=== PATIENT | female | born 1935 | race Caucasian/White ===

== ENCOUNTER 2021-07-26 11:04 | Inpatient (IN) | payer MEDICARE, OTHER ==
[~2021-07-26] VITALS: Ht 157.5 cm; Wt 66.6 kg
[2021-07-26] MEDS ORDERED: PIPERACILLIN SODIUM/TAZOBACTAM 4.5 GM in NS (IVPB) 100 ML IV ONE (11:30)
[2021-07-26] MEDS ORDERED: LACTATED RINGERS 1,000 ML IV ONE (11:30)
--- NOTE | 2021-07-26 11:34 | ED General ---
General Chief Complaint: Fever-Adult/Adol Stated Complaint: ELEV BP/HR; FEVER Nursing Triage Note: Patient presents to the ED with c/o fever, elevated blood pressure, and elevated heart rate. Patient reports that she was discharged yesterday from [facility] with a small bowel obstruction. She states she went to her follow appointment today with her PCP and they told her to come to the ED due to her fever, elevated BP, and high heart rate. Source of Information: Patient Exam Limitations: No Limitations History of Present Illness Date Seen by Provider: Jul 26, 2021 Time Seen by Provider: 11:15 Initial Comments Patient is of 86-year-old female presents with fever A. fib with RVR from her PCPs office for routine appointment after release from hospital yesterday after 4-day inpatient hospital stay for small bowel obstruction and fever of uncertain etiology. Patient is not currently on antibiotics but had a fever at her PCPs office today. She reports generalized flushing but denies chest pain palpitation shortness of breath. No abdominal pain. No nausea vomiting or diarrhea. No urinary frequency urgency or dysuria. Patient had a mild case of Covid 3 months ago. No other acute symptoms or complaints. No prior history of CAD, CHF or cardiac arrhythmia. Patient is not currently on anticoagulation therapy. Additional history obtained from the patient's daughter who is at bedside. Timing/Duration: 12 Hours Severity: Moderate Modifying Factors: improves with Other Associated Systoms: Other Allergies and Home Medications Allergies Coded Allergies: No Known Drug Allergies (Unverified , 07/26/21) Patient Home Medication List Home Medication List Reviewed: Yes Review of Systems Review of Systems Constitutional: see HPI EENTM: see HPI Respiratory: see HPI Cardiovascular: see HPI Gastrointestinal: see HPI Genitourinary: see HPI Musculoskeletal: see HPI Skin: see HPI Psychiatric/Neurological: See HPI Hematologic/Lymphatic: See HPI Immunological/Allergic: see HPI All Other Systems Reviewed Negative Unless Noted: Yes Past Jxvmwgy-Ynmpfy-Zzywbr Hx Patient Social History Tobacco Use?: Yes Use of E-Cig and/or Vaping dev: No Substance use?: No Alcohol Use?: No Pt feels they are or have been: No Immunizations Up To Date First/Initial COVID19 Vaccinat: Not Currently Vaccinated. COVID + March 2021 Past Medical History Surgery/Hospitalization HX: Discharged from [facility] 07/25/2021 for small bowel obstruction. Physical Exam-Suspected Sepsis Physical Exam Vital Signs Vital Signs - First Documented 07/26/21 11:10 Temp 37.1 Pulse 134 Resp 24 B/P (MAP) 150/107 (121) Pulse Ox 95 O2 Delivery Room Air Capillary Refill : Less Than 3 Seconds Blood Pressure Mean: 121 Height, Weight, BMI Height: '" Weight: lbs. oz. kg; 24.00 BMI Method: General Appearance: No Apparent Distress Eyes: Bilateral Eye Normal Inspection, Bilateral Eye PERRL, Bilateral Eye EOMI HEENT: PERRL/EOMI, Pharynx Normal Neck: Non Tender, Supple Respiratory: Chest Non Tender, Lungs Clear Cardiovascular: Regular Rate, Rhythm, Tachycardia Gastrointestinal: Non Tender, Soft Back: No CVA Tenderness, No Vertebral Tenderness Extremity: Non Tender, No Calf Tenderness Skin: normal color, warm/dry Lymphatic: No Adenopathy Focused Exam Sepsis Stage: Sepsis Possible Source: Unknown Lactate Level 07/26/21 11:40: Lactic Acid Level 1.44 Time of Focused Exam: 11:20 Respiratory: Lungs Clear, No Accessory Muscle Use Cardiovascular: Irregularly Irregular, Tachycardia Capillary Refill: Less Than 3 Seconds Skin: normal color Lactic Acid Level Laboratory Tests Test 07/26/21 11:40 Lactic Acid Level 1.44 MMOL/L (0.50-2.00) Within 3hrs of presentation: Admin fluids, Blood cultures prior to ABX's, Focus exam, Lactate level Progress/Results/Core Measures Suspected Sepsis SIRS Temperature: Pulse: 134 Respiratory Rate: 24 Laboratory Tests 07/26/21 11:25: White Blood Count 6.7 Blood Pressure 150 /107 Mean: 121 07/26/21 11:40: Lactic Acid Level 1.44 Laboratory Tests 07/26/21 11:25: Creatinine 0.64, INR Comment 1.1, Platelet Count 214, Total Bilirubin 1.0 Results/Orders Lab Results Laboratory Tests Test 07/26/21 11:25 07/26/21 11:40 07/26/21 12:45 Range/Units White Blood Count 6.7 4.3-11.0 10^3/uL Red Blood Count 3.45 L 3.80-5.11 10^6/uL Hemoglobin 11.0 L 11.5-16.0 g/dL Hematocrit 33 L 35-52 % Mean Corpuscular Volume 95 80-99 fL Mean Corpuscular Hemoglobin 32 25-34 pg Mean Corpuscular Hemoglobin Concent 34 32-36 g/dL Red Cell Distribution Width 12.8 10.0-14.5 % Platelet Count 214 130-400 10^3/uL Mean Platelet Volume 10.2 9.0-12.2 fL Immature Granulocyte % (Auto) 0 % Neutrophils (%) (Auto) 70 42-75 % Lymphocytes (%) (Auto) 15 12-44 % Monocytes (%) (Auto) 11 0-12 % Eosinophils (%) (Auto) 3 0-10 % Basophils (%) (Auto) 0 0-10 % Neutrophils # (Auto) 4.7 1.8-7.8 X 10^3 Lymphocytes # (Auto) 1.0 1.0-4.0 X 10^3 Monocytes # (Auto) 0.7 0.0-1.0 X 10^3 Eosinophils # (Auto) 0.2 0.0-0.3 10^3/uL Basophils # (Auto) 0.0 0.0-0.1 10^3/uL Immature Granulocyte # (Auto) 0.0 0.0-0.1 10^3/uL Prothrombin Time 14.2 12.2-14.7 SEC INR Comment 1.1 0.8-1.4 Activated Partial Thromboplast Time 34 24-35 SEC Sodium Level 137 135-145 MMOL/L Potassium Level 3.9 3.6-5.0 MMOL/L Chloride Level 101 98-107 MMOL/L Carbon Dioxide Level 27 21-32 MMOL/L Anion Gap 9 5-14 MMOL/L Blood Urea Nitrogen 19 H 7-18 MG/DL Creatinine 0.64 0.60-1.30 MG/DL Estimat Glomerular Filtration Rate 88 BUN/Creatinine Ratio 30 Glucose Level 106 H 70-105 MG/DL Calcium Level 9.4 8.5-10.1 MG/DL Corrected Calcium 10.0 8.5-10.1 MG/DL Total Bilirubin 1.0 0.1-1.0 MG/DL Aspartate Amino Transf (AST/SGOT) 24 5-34 U/L Alanine Aminotransferase (ALT/SGPT) 16 0-55 U/L Alkaline Phosphatase 70 40-136 U/L Troponin I < 0.30 <0.30 NG/ML Pro-B-Type Natriuretic Peptide 3882.0 H <75.0 PG/ML Total Protein 6.4 6.4-8.2 GM/DL Albumin 3.3 3.2-4.5 GM/DL Lactic Acid Level 1.44 0.50-2.00 MMOL/L Influenza Type A Antigen NEGATIVE NEGATIVE Influenza Type B Antigen NEGATIVE NEGATIVE Urine Color YELLOW Urine Clarity CLEAR Urine pH 6.5 5-9 Urine Specific [place] 1.015 L 1.016-1.022 Urine Protein NEGATIVE NEGATIVE Urine Glucose (UA) NEGATIVE NEGATIVE Urine Ketones TRACE H NEGATIVE Urine Nitrite NEGATIVE NEGATIVE Urine Bilirubin NEGATIVE NEGATIVE Urine Urobilinogen 0.2 < = 1.0 MG/DL Urine Leukocyte Esterase NEGATIVE NEGATIVE Urine RBC (Auto) TRACE H NEGATIVE Urine RBC RARE /HPF Urine WBC 0-2 /HPF Urine Squamous Epithelial Cells NONE /HPF Urine Crystals NONE /LPF Urine Bacteria TRACE /HPF Urine Casts NONE /LPF Urine Mucus NEGATIVE /LPF Urine Culture Indicated NO My Orders Orders - TOMAS CHAUHAN DO Cbc With Automated Diff (07/26/21 11:26) Comprehensive Metabolic Panel (07/26/21 11:26) Blood Culture (07/26/21 11:26) Sputum Culture (07/26/21 11:26) Urinalysis (07/26/21 11:26) Urine Culture (07/26/21 11:26) Protime With Inr (07/26/21 11:26) Partial Thromboplastin Time (07/26/21 11:26) Chest 1 View Ap/Pa Only (07/26/21 11:26) Ed Iv/Invasive Line Start (07/26/21 11:26) Ed Iv/Invasive Line Start (07/26/21 11:26) Vital Signs Adult Sepsis Patie Q15M (07/26/21 11:26) O2 (07/26/21 11:26) Remove Rings In Anticipation O (07/26/21 11:26) Lactic Acid Analyzer (07/26/21 11:26) Lactated Ringers (Lr 1000 Ml Iv Solution (07/26/21 11:30) Piperacillin Sodium/Tazobactam (Zosyn Vi (07/26/21 11:30) Influenza A & B Antigens (07/26/21 11:26) Probnp Fs (07/26/21 11:26) Troponin I Fs (07/26/21 11:26) Diltiazem Injection (Cardizem Injection) (07/26/21 12:30) Diltiazem Drip Pre-Mix (Cardizem Drip Pr (07/26/21 12:30) Furosemide Injection (Lasix Injection) (07/26/21 14:00) Medications Given in ED Current Medications Medications Dose Ordered Sig/Kalen Route Start Time Stop Time Status Last Admin Dose Admin Diltiazem HCl 10 mg ONCE ONCE IVP 07/26/21 12:30 07/26/21 12:31 DC 07/26/21 12:27 10 MG Lactated Ringer's 1,000 ml @ 0 mls/hr Q0M ONCE IV 07/26/21 11:30 07/26/21 11:31 DC 07/26/21 11:46 0 MLS/HR Piperacillin Sod/ Tazobactam Sod 4.5 gm/Sodium Chloride 100 ml @ 200 mls/hr ONCE ONCE IV 07/26/21 11:30 07/26/21 11:59 DC 07/26/21 11:46 200 MLS/HR Vital Signs/I&O 07/26/21 07/26/21 11:10 12:35 Temp 37.1 Pulse 134 88 Resp 24 23 B/P (MAP) 150/107 (121) 135/59 Pulse Ox 95 95 O2 Delivery Room Air Room Air Capillary Refill : Less Than 3 Seconds Blood Pressure Mean: 121 Departure Communication (Admissions) EKG: A. fib RVR, Chest x-ray, cardiopulmonary congestion with possible pulmonary infiltrate. Patient with fever, possible pneumonia on chest x-ray with findings of new onset A. fib with congestive heart failure. Patient is rate controlled with utilization of Cardizem and drip. IV fluids and empiric antibiotics given. Vital signs stable. Dr. Houston agrees to admit and Dr. Otero consulted. Impression Primary Impression: Atrial fibrillation with RVR Additional Impressions: Congestive heart failure Pneumonia Disposition: ADMITTED INPATIENT Condition: Stable Admissions Decision to Admit Reason: Admit from ER (General) Decision to Admit/Date: Jul 26, 2021 Time/Decision to Admit Time: 14:05 (Dr. Arriaza) Transfer Method of Transfer: EMS Departure-Patient Inst. Referrals: SELF,LUANNE MENDES (PCP/Family) Primary Care Physician TOMAS CHAUHAN DO Jul 26, 2021 11:34
--- NOTE | 2021-07-26 11:41 | Diagnostic Imaging Report ---
EXAMINATION: Portable erect AP chest at 1117 AM INDICATION: Fever and hypertension There are no prior studies available for comparison. The heart size is within normal limits. There is a vague area of slightly increased density in the right infrahilar region near the right hemidiaphragm. This finding could be secondary to chronic crowding of the bronchovascular markings. However, the possibility that there is an element of mild acute pneumonia and atelectasis in this area should still be considered. The lungs are otherwise clear. There is no evidence for failure and there is no significant pleural effusion noted. The mediastinum is not widened. The osseous structures are intact. Orthopedic hardware is seen overlying each humeral head and the lower cervical spine. IMPRESSION: 1. The vague area of increased density in the right infrahilar region is of uncertain etiology. This could be secondary to mild pneumonia/atelectasis, however. Clinical follow-up is recommended. 2. There is no acute cardiopulmonary abnormality noted otherwise. Dictated by: Dictated on workstation # [id number]
[2021-07-26 11:47] LABS: BASOPHILS % (AUTO) 0 % (0-10); EOSINOPHILS % (AUTO) 3 % (0-10); HEMATOCRIT 33 % (35-52); LYMPHOCYTES % (AUTO) 15 % (12-44); MEAN CORPUSCULAR HEMOGLOBIN 32 pg (25-34); MEAN CORPUSCULAR HGB CONC 34 g/dL (32-36); MEAN CORPUSCULAR VOLUME 95 fL (80-99); MEAN PLATELET VOLUME 10.2 fL (9.0-12.2); MONOCYTES % (AUTO) 11 % (0-12); NEUTROPHILS % (AUTO) 70 % (42-75); PLATELET COUNT 214 10^3/uL (130-400); WHITE BLOOD COUNT 6.7 10^3/uL (4.3-11.0)
[2021-07-26 11:48] LABS: EOSINOPHILS # (AUTO) 0.2 10^3/uL (0.0-0.3); MONOCYTES # (AUTO) 0.7 X 10^3 (0.0-1.0); NEUTROPHILS # (AUTO) 4.7 X 10^3 (1.8-7.8)
[2021-07-26 12:03] LABS: ALANINE AMINOTRANSFERASE 16 U/L (0-55); ALKALINE PHOSPHATASE 70 U/L (40-136); BUN/CREATININE RATIO 30; CALCIUM 9.4 MG/DL (8.5-10.1); CARBON DIOXIDE 27 MMOL/L (21-32); CHLORIDE 101 MMOL/L (98-107); CREATININE SERUM 0.64 MG/DL (0.60-1.30); GFR ESTIMATED 88; GLUCOSE 106 MG/DL (70-105); POTASSIUM 3.9 MMOL/L (3.6-5.0); SODIUM 137 MMOL/L (135-145)
[2021-07-26 12:04] LABS: ALBUMIN 3.3 GM/DL (3.2-4.5); TOTAL PROTEIN 6.4 GM/DL (6.4-8.2)
[2021-07-26 12:26] LABS: INR 1.1 (0.8-1.4); PROTHROMBIN TIME PATIENT 14.2 SEC (12.2-14.7)
[2021-07-26] MEDS ORDERED: dilTIAZem DRIP PRE-MIX 125 ML IV SCH (12:30)
[2021-07-26 12:56] LABS: BILIRUBIN,URINE NEGATIVE (NEGATIVE); CLARITY,URINE CLEAR; COLOR,URINE YELLOW; GLUCOSE, URINE (UA) NEGATIVE (NEGATIVE); KETONES,URINE TRACE (NEGATIVE); NITRITE,URINE NEGATIVE (NEGATIVE); PH,URINE 6.5 (5-9); PROTEIN,URINE NEGATIVE (NEGATIVE)
[2021-07-26 12:57] LABS: BACTERIA,URINE TRACE /HPF; LEUKOCYTE ESTERASE ,URINE NEGATIVE (NEGATIVE); RBC,URINE RARE /HPF; WBC,URINE 0-2 /HPF
[2021-07-26] MEDS ORDERED: FUROSEMIDE 40 MG/4 ML INJ (LASIX) IVP ONE (14:00)
[2021-07-26] MEDS: dilTIAZem DRIP PRE-MIX 125 ML IV SCH (16:30)
[2021-07-26] MEDS ORDERED: CATHETER FLUSH 10 ML SYR IV PRN (16:30)
--- NOTE | 2021-07-26 16:50 | Tele-ICU Progress Note ---
Progress Note Video assessment done , Hemodynamically stable Available charting reviewed NO TELE-ICU CONSULT REQUESTED CONTINUE TO MONITOR PER USUAL TELE-ICU PROTOCOL No need for Tele-ICU interventions Plans as delineated by bedside physicians / consultants Hospital course: 07/16 - 86-year-old female presents with fever A. fib with RVR , after release from hospital yesterday after 4-day inpatient hospital stay for small bowel obstruction and fever of uncertain etiology A/P A fi RVR - cardizem gtt - rate controlled - lasix x1 given - AC - ? Reportedly recent admit with fever of uncertain etiology - given zosyn x1 - no records available Focused Exam Lactate Level 07/26/21 11:40: Lactic Acid Level 1.44 Height, Weight, BMI Height: '" Weight: lbs. oz. kg; 26.52 BMI Method: Time of Focused Exam: 11:20 MIRIAN BONDS MD Jul 26, 2021 16:50
[2021-07-26] MEDS: CATHETER FLUSH 10 ML SYR IV SCH (22:00)
[2021-07-27] MEDS: dilTIAZem DRIP PRE-MIX 125 ML IV SCH (04:38)
[2021-07-27 05:01] LABS: BASOPHILS % (AUTO) 0 % (0-10); EOSINOPHILS # (AUTO) 0.3 10^3/uL (0.0-0.3); EOSINOPHILS % (AUTO) 6 % (0-10); HEMATOCRIT 32 % (35-52); HEMOGLOBIN 10.8 g/dL (11.5-16.0); LYMPHOCYTES # (AUTO) 1.2 10^3/uL (1.0-4.0); LYMPHOCYTES % (AUTO) 23 % (12-44); MEAN CORPUSCULAR HEMOGLOBIN 32 pg (25-34); MEAN CORPUSCULAR HGB CONC 34 g/dL (32-36); MEAN CORPUSCULAR VOLUME 94 fL (80-99); MEAN PLATELET VOLUME 10.4 fL (9.0-12.2); MONOCYTES # (AUTO) 0.7 10^3/uL (0.0-1.0); MONOCYTES % (AUTO) 13 % (0-12); NEUTROPHILS # (AUTO) 2.9 10^3/uL (1.8-7.8); NEUTROPHILS % (AUTO) 57 % (42-75); PLATELET COUNT 217 10^3/uL (130-400)
[2021-07-27 05:11] LABS: POTASSIUM 3.4 MMOL/L (3.6-5.0)
[2021-07-27 05:12] LABS: CALCIUM 8.7 MG/DL (8.5-10.1)
[2021-07-27 05:17] LABS: CREATININE SERUM 0.62 MG/DL (0.60-1.30); PHOSPHORUS 3.4 MG/DL (2.3-4.7)
[2021-07-27 05:19] LABS: MAGNESIUM 1.6 MG/DL (1.6-2.4)
[2021-07-27] MEDS: CATHETER FLUSH 10 ML SYR IV SCH ×2 (05:45→15:04)
[2021-07-27] MEDS ORDERED: MAGNESIUM 1 GM/100 ML IVPB 100 ML IV SCH (06:00)
[2021-07-27] MEDS ORDERED: KCL 20 MEQ TAB (K-DUR) PO SCH (06:00)
[2021-07-27] MEDS ORDERED: POTASSIUM CL 10MEQ/50ML IVPB 50 ML IV SCH (06:00)
[2021-07-27] MEDS: MAGNESIUM 1 GM/100 ML IVPB 100 ML IV SCH ×2 (06:22→09:06)
[2021-07-27] MEDS ORDERED: KCL 20 MEQ TAB (K-DUR) PO ONE (09:00)
[2021-07-27] MEDS ORDERED: LOSA50TA63 PO (09:12)
[2021-07-27] MEDS ORDERED: ATOR20TA66 PO (09:12)
[2021-07-27] MEDS ORDERED: LEVO100C4 PO (09:12)
[2021-07-27] MEDS ORDERED: dilTIAZem120 MG (CARDIZEM CD) CAP PO SCH (09:15)
[2021-07-27] MEDS ORDERED: ASPI-1238 PO (11:20)
[2021-07-27] MEDS ORDERED: LEVO100T7 PO (11:20)
--- NOTE | 2021-07-27 13:05 | History & Physical ---
HPI History of Present Illness: 86 yo F that presented to ER with palpitations and not feeling good. Patient got released from [facility] yesterday after several days stay for SBO. Patient states that she has never had an episode like this in the past. She denies any chest pain but did have some shortness of breath yesterday. This AM patient feels much better and states that she feels back to normal. ICU Nurse reports that she self converted around 4 AM this AM and has been rate controlled. Source: patient, family (Daughter) Exam Limitations: no limitations Date seen by provider: Jul 27, 2021 Time Seen by Provider: 09:30 Attending Physician Jaki Arriaza MD PCP SelfCaesar MD Consult Date of Admission Jul 26, 2021 at 13:30 Home Medications Home Medications Reviewed patient Home Medication Reconciliation performed by pharmacy medication reconciliations certified medical technician assistant and/or nursing. Patients Allergies have been reviewed. Allergies Coded Allergies: No Known Drug Allergies (Unverified , 07/26/21) BFK-Bwwkwu-Jsyseo Hx Patient Social History Smoking Status: Never a Smoker Alcohol Use?: No Have you traveled recently?: No Past Medical History Hypothyroidism SBO x3 HTN Family Medical History Significant Family History: No Pertinent Family Hx Review of Systems ([facility]) Constitutional: No chills, No fever; malaise, weakness EENTM: no symptoms reported; No mouth pain, No nose congestion, No throat pain Respiratory: No cough; dyspnea on exertion; No short of breath Cardiovascular: No chest pain, No edema; palpitations Gastrointestinal: no symptoms reported; No abdominal pain, No constipation, No diarrhea, No nausea, No vomiting Genitourinary: no symptoms reported; No dysuria, No frequency, No hematuria : No Musculoskeletal: no symptoms reported Skin: no symptoms reported; No lesions, No rash Psychiatric/Neurological: No Symptoms Reported Reviewed Test Results Reviewed Test Results Lab Laboratory Tests Test 07/27/21 04:20 Range/Units White Blood Count 5.0 4.3-11.0 10^3/uL Red Blood Count 3.39 L 3.80-5.11 10^6/uL Hemoglobin 10.8 L 11.5-16.0 g/dL Hematocrit 32 L 35-52 % Mean Corpuscular Volume 94 80-99 fL Mean Corpuscular Hemoglobin 32 25-34 pg Mean Corpuscular Hemoglobin Concent 34 32-36 g/dL Red Cell Distribution Width 12.6 10.0-14.5 % Platelet Count 217 130-400 10^3/uL Mean Platelet Volume 10.4 9.0-12.2 fL Immature Granulocyte % (Auto) 0 % Neutrophils (%) (Auto) 57 42-75 % Lymphocytes (%) (Auto) 23 12-44 % Monocytes (%) (Auto) 13 H 0-12 % Eosinophils (%) (Auto) 6 0-10 % Basophils (%) (Auto) 0 0-10 % Neutrophils # (Auto) 2.9 1.8-7.8 10^3/uL Lymphocytes # (Auto) 1.2 1.0-4.0 10^3/uL Monocytes # (Auto) 0.7 0.0-1.0 10^3/uL Eosinophils # (Auto) 0.3 0.0-0.3 10^3/uL Basophils # (Auto) 0.0 0.0-0.1 10^3/uL Immature Granulocyte # (Auto) 0.0 0.0-0.1 10^3/uL Sodium Level 138 135-145 MMOL/L Potassium Level 3.4 L 3.6-5.0 MMOL/L Chloride Level 99 98-107 MMOL/L Carbon Dioxide Level 26 21-32 MMOL/L Anion Gap 13 5-14 MMOL/L Blood Urea Nitrogen 13 7-18 MG/DL Creatinine 0.62 0.60-1.30 MG/DL Estimat Glomerular Filtration Rate 91 BUN/Creatinine Ratio 21 Glucose Level 95 70-105 MG/DL Calcium Level 8.7 8.5-10.1 MG/DL Phosphorus Level 3.4 2.3-4.7 MG/DL Magnesium Level 1.6 1.6-2.4 MG/DL Triglycerides Level 79 <150 MG/DL Cholesterol Level 149 < 200 MG/DL LDL Cholesterol Direct 76 1-129 MG/DL VLDL Cholesterol 16 5-40 MG/DL HDL Cholesterol 57 40-60 MG/DL Thyroid Stimulating Hormone (TSH) 2.49 0.35-4.94 UIU/ML Physical Exam-(CHC) Physical Exam Vital Signs VS - Last 72 Hours, by Label 07/26/21 07/26/21 07/26/21 07/26/21 11:10 12:35 14:41 16:21 Temp 37.1 37.1 Pulse 134 88 106 101 Resp 24 23 23 17 B/P (MAP) 150/107 (121) 135/59 184/138 140/110 Pulse Ox 95 95 95 94 O2 Delivery Room Air Room Air Room Air Room Air 07/26/21 07/26/21 07/26/21 07/26/21 16:50 17:00 18:00 19:00 Pulse 92 82 79 Resp 10 23 B/P (MAP) 164/109 149/74 Pulse Ox 92 94 O2 Delivery Room Air Room Air Room Air 07/26/21 07/26/21 07/26/21 07/26/21 19:29 20:00 20:00 21:00 Temp 36.2 36.5 Pulse 80 80 Resp 16 15 B/P (MAP) 130/74 143/69 Pulse Ox 92 91 O2 Delivery Room Air Room Air Room Air 07/26/21 07/26/21 07/26/21 07/27/21 22:00 23:00 23:28 00:00 Pulse 82 80 80 Resp 18 19 21 B/P (MAP) 139/72 136/70 138/71 Pulse Ox 93 94 93 O2 Delivery Room Air Room Air Room Air Room Air 07/27/21 07/27/21 07/27/21 07/27/21 01:00 01:00 02:00 03:00 Pulse 81 81 80 80 Resp 25 13 18 B/P (MAP) 156/74 144/78 129/72 Pulse Ox 93 93 97 O2 Delivery Room Air Room Air Room Air 07/27/21 07/27/21 07/27/21 07/27/21 04:00 04:33 05:00 06:00 Pulse 74 76 69 Resp 15 20 24 B/P (MAP) 143/85 135/66 139/62 Pulse Ox 95 98 94 O2 Delivery Room Air Nasal Cannula Room Air Room Air O2 Flow Rate 2.00 07/27/21 07/27/21 07/27/21 07/27/21 07:00 07:37 07:46 08:00 Temp 36.3 Pulse 62 69 Resp 31 B/P (MAP) 119/45 Pulse Ox 97 O2 Delivery Nasal Cannula Room Air O2 Flow Rate 2.00 FiO2 96 07/27/21 07/27/21 07/27/21 09:00 12:00 12:50 Pulse 75 80 77 Resp 31 13 B/P (MAP) 131/68 131/73 Pulse Ox 96 98 O2 Delivery Room Air Room Air Capillary Refill : Less Than 3 Seconds General Appearance: WD/WN, no apparent distress, thin Neck: non-tender, full range of motion, supple Respiratory: chest non-tender, lungs clear, normal breath sounds, no respiratory distress, no accessory muscle use Cardiovascular: normal peripheral pulses, regular rate, rhythm, no edema, systolic murmur Gastrointestinal: normal bowel sounds, non tender, soft Back: no CVA tenderness Extremities: normal inspection, no pedal edema, no calf tenderness, normal capillary refill Neurologic/Psychiatric: hotel maintenance technician II-XII nml as tested, no motor/sensory deficits, alert, normal mood/affect, oriented x 3 Skin: normal color, warm/dry Lymphatic: no adenopathy Assessment/Plan Assessment/Plan Admission Status: Inpatient Order (span 2 midnights) Reason for Inpatient Admission: Patient requiring IV medication to get back into sinus rhythm and needs constant monitoring in ICU (1) Atrial fibrillation with RVR Status: Acute Assessment & Plan: - Cardiology consulted, Started on Cardizem and patient self converted 4AM, Started on OAC, Echo pending (2) Systolic murmur Status: Acute Assessment & Plan: - Echo pending, patient states that she has never been told about murmur (3) Acquired hypothyroidism Status: Chronic Assessment & Plan: - Continue home meds (4) Mixed hyperlipidemia Status: Chronic (5) Primary hypertension Status: Chronic Assessment & Plan: - Continue home meds Copy Copies To 1: SELF,JAKI DE LEON MD, MD Jul 27, 2021 13:05
--- NOTE | 2021-07-27 15:23 | Consultation-Cardiology ---
HPI-Cardiology Cardiology Consultation: Date of Consultation 07/27/2021 Date of Admission 07/26/2021 Attending Physician Babita Arriaza MD Admitting Physician Caesar Lutz MD Consulting Physician KATHIE MOREJON JR, MD HPI: Time Seen by a Provider: 15:53 Chief Complaint: Reason for consultation: Atrial fibrillation, paroxysmal. I had the pleasure of seeing Cheryl in the intensive care unit at [facility] in [place], [place] this afternoon. Earlier in the week she had been at [facility] in [place], [place] due to a small bowel obstruction. She was discharged home about 2 days ago and then saw her primary care provider yesterday for a routine follow-up visit unrelated to her recent hospitalization. From what I can gather, she was found to have tachycardia and was sent to the emergency room in [place]. She was found to be in atrial fibrillation with a rapid ventricular rate. She was started on intravenous diltiazem and transferred to our intensive care unit for further treatment and evaluation. Overnight, she converted back to sinus rhythm. She denies any previous history of atrial fibrillation. She denies any history of stroke, myocardial infarction, heart failure, or diabetes. She lives with her about 1 hour from [place]. He has chronic atrial fibrillation so she is somewhat familiar with the disease. Because of the atrial fibrillation, a cardiology consultation was requested. She denies chest pain, dyspnea, paroxysmal nocturnal dyspnea, orthopnea, palpitations, lightheadedness, syncope, or ankle edema. Certain portions of this document may have been dictated utilizing voice recognition technology. Inherent to this technology, typographical and grammatical errors may exist. As much as I am diligent to identify and correct these mistakes, some errors may remain in the document. Review of Systems-Cardiology Review of Systems : No Other comments Review of 10 organ systems is as per the history of present illness, otherwise negative. All Other Systems Reviewed Negative Unless Noted: Yes [id number] Hx Patient Social History Marrital Status: Smoking Status: Never a Smoker Have you traveled recently?: No Alcohol Use?: No Pt feels they are or have been: No Past Medical History PMH As described under Assessment. Family Medical History Family Medical History: The patient does not know of any family history of premature coronary artery disease in first-degree relatives. Allergies and Home Medications Allergies Coded Allergies: No Known Drug Allergies (Unverified , 07/26/21) Patient Home Medication List Home Medication List Reviewed: Yes Atorvastatin Calcium (Atorvastatin Calcium) 20 Mg Tablet, 20 MG PO HS, (Reported) Entered as Reported by: IVORY ROSAS on 07/27/21911 Last Action: Reviewed Diltiazem HCl (Diltiazem 24Hr ER) 120 Mg Cap.er.24h, 120 MG PO DAILY Prescribed by: KATHIE MOREJON JR, MD on 07/27/21 1540 Levothyroxine Sodium (Levothyroxine Sodium) 100 Mcg Tablet, 100 MCG PO DAILY, (Reported) Entered as Reported by: FEDERICA LEWIS on 07/27/211119 Last Action: Continued Rivaroxaban (Xarelto Tablet) 20 Mg Tablet, 20 MG PO DAILY@1700 Prescribed by: KATHIE MOREJON JR, MD on 07/27/21 154 Discontinued Medications Aspirin (Aspirin EC) 81 Mg Tablet.dr, 81 MG PO DAILY, (Reported) Entered as Reported by: FEDERICA LEWIS on 07/27/211119 Last Action: Reviewed Levothyroxine Sodium (Levothyroxine) 100 Mcg Capsule, 100 MCG PO, (Reported) Discontinued Reason: Duplicate Order Entered as Reported by: IVORY ROSAS on 07/27/21911 Last Action: Discontinued Losartan Potassium (Losartan Potassium) 50 Mg Tablet, 50 MG PO DAILY, (Reported) Entered as Reported by: IVORY ROSAS on 07/27/21911 Last Action: Reviewed Exam Vital Signs Vital Signs Date Time Temp Pulse Resp B/P (MAP) Pulse Ox O2 Delivery O2 Flow Rate FiO2 07/27/21 16:25 35.4 07/27/21 16:00 74 16 157/75 94 Room Air 07/27/21 07:37 2.00 96 Physical Exam General: Alert. No acute distress. Well nourished and appears stated age. Eye: Extraocular movements are intact. Conjunctivae are clear. There are no xa nthelasma. HENT: Normocephalic. Atraumatic. Carotid pulsations 2/2 without bruits. Neck: Jugular venous pressure does not appear elevated. No thyromegaly appreciated. Respiratory: Lungs are clear to auscultation. Respirations are non-labored. Breath sounds are equal. Symmetrical chest wall expansion. Cardiovascular: Normal rate. Regular rhythm. 2/6 systolic ejection murmur. No gallop. Point of maximal impulse is not appear displaced. Good pulses equal in all extremities. No edema. Gastrointestinal: Soft. Normal bowel sounds. Skin: Skin turgor is normal. There is no pallor. Musculoskeletal: No kyphosis or scoliosis appreciated. Neurologic: Alert and oriented to person, place, time. Cranial nerves 3-12 appear grossly intact. The patient has good motor tone strength in the upper and lower extremities bilaterally. Psychiatric: Cooperative. Appropriate mood & affect. Labs Laboratory Tests Test 07/27/21 04:20 Range/Units White Blood Count 5.0 4.3-11.0 10^3/uL Red Blood Count 3.39 L 3.80-5.11 10^6/uL Hemoglobin 10.8 L 11.5-16.0 g/dL Hematocrit 32 L 35-52 % Mean Corpuscular Volume 94 80-99 fL Mean Corpuscular Hemoglobin 32 25-34 pg Mean Corpuscular Hemoglobin Concent 34 32-36 g/dL Red Cell Distribution Width 12.6 10.0-14.5 % Platelet Count 217 130-400 10^3/uL Mean Platelet Volume 10.4 9.0-12.2 fL Immature Granulocyte % (Auto) 0 % Neutrophils (%) (Auto) 57 42-75 % Lymphocytes (%) (Auto) 23 12-44 % Monocytes (%) (Auto) 13 H 0-12 % Eosinophils (%) (Auto) 6 0-10 % Basophils (%) (Auto) 0 0-10 % Neutrophils # (Auto) 2.9 1.8-7.8 10^3/uL Lymphocytes # (Auto) 1.2 1.0-4.0 10^3/uL Monocytes # (Auto) 0.7 0.0-1.0 10^3/uL Eosinophils # (Auto) 0.3 0.0-0.3 10^3/uL Basophils # (Auto) 0.0 0.0-0.1 10^3/uL Immature Granulocyte # (Auto) 0.0 0.0-0.1 10^3/uL Sodium Level 138 135-145 MMOL/L Potassium Level 3.4 L 3.6-5.0 MMOL/L Chloride Level 99 98-107 MMOL/L Carbon Dioxide Level 26 21-32 MMOL/L Anion Gap 13 5-14 MMOL/L Blood Urea Nitrogen 13 7-18 MG/DL Creatinine 0.62 0.60-1.30 MG/DL Estimat Glomerular Filtration Rate 91 BUN/Creatinine Ratio 21 Glucose Level 95 70-105 MG/DL Calcium Level 8.7 8.5-10.1 MG/DL Phosphorus Level 3.4 2.3-4.7 MG/DL Magnesium Level 1.6 1.6-2.4 MG/DL Triglycerides Level 79 <150 MG/DL Cholesterol Level 149 < 200 MG/DL LDL Cholesterol Direct 76 1-129 MG/DL VLDL Cholesterol 16 5-40 MG/DL HDL Cholesterol 57 40-60 MG/DL Thyroid Stimulating Hormone (TSH) 2.49 0.35-4.94 UIU/ML Radiology ECHOCARDIOGRAM (07/27/2021): 1. Left ventricle: The cavity size is normal. There is mild concentric hypertrophy. Systolic function is normal. The estimated ejection fraction is 65- 70%. There were no regional wall motion abnormalities identified. The left ventricular diastolic function is indeterminate. 2. Left atrium: The left atrium is moderately to severely dilated with a volume index ranging from 36-74 mL/m. 3. Aortic valve: There is mild aortic stenosis with a mean gradient of 11 mmHg, peak gradient of 21 mmHg and a peak velocity of 2.3 m/s. The aortic valve appears tricuspid with thickened and calcified leaflets with restricted leaflet mobility. 4. Inferior vena cava: The vessel is dilated. The respirophasic diameter changes are blunted (less than 50%). 5. Pulmonary arteries: The estimated pulmonary artery systolic pressure is 41 mmHg assuming a right atrial pressure of 15 mmHg. Diagnosis/Problems Diagnosis/Problems (1) Paroxysmal atrial fibrillation Assessment & Plan: She developed new onset atrial fibrillation as outlined above. She was just in the hospital in [place] so I suspect the atrial fibrillation may have started within the past 24-48 hours. She seems to be asymptomatic with this. This may have been brought on by her recent noncardiac illness. She has now converted to a sinus rhythm. I have changed the intravenous diltiazem over to long-acting oral diltiazem. I will initiate therapy with rivaroxaban for stroke prophylaxis. Her [id number] score is 4 due to female sex, age over 65, age over 75, and hypertension. She lives 1 hour from our hospital and would prefer to follow-up with her 's job placement counselor from [place] who periodically comes to their home town to see patients. From a cardiac standpoint, she can be discharged home. (2) Aortic stenosis Assessment & Plan: Her echocardiogram shows mild aortic stenosis. This appears to be a new finding in the patient. This will need to be followed longi beronicadinally. I did make the patient and her daughter aware of this diagnosis. (3) Primary hypertension Status: Chronic Assessment & Plan: I have started the patient on long-acting oral diltiazem due to the atrial fibrillation. I would hold off on resuming her regular outpatient antihypertensive medication until we see how she responds to the diltiazem. This can be followed as an outpatient by her regular provider. (4) Mixed hyperlipidemia Status: Chronic Assessment & Plan: Continue statin medication. (5) Acquired hypothyroidism Status: Chronic Assessment & Plan: Her TSH level is normal so it is unlikely the thyroid disease had anything to do with the atrial fibrillation. (6) Overweight Assessment & Plan: She needs to work on a small amount of weight loss. Just 20 pounds of weight loss will help reduce the risk of recurrent atrial fibrillation. KATHIE MOREJON JR, MD Jul 27, 2021 15:23
[2021-07-27] MEDS ORDERED: DILT-27 PO (15:40)
[2021-07-27] MEDS ORDERED: RIVA20TA2 PO (15:40)
--- NOTE | 2021-07-27 16:59 | Discharge Summary ---
Discharge Summary Hospital Course Was the Problem List Reviewed?: Yes Problems/Dx: (1) Paroxysmal atrial fibrillation (2) Aortic stenosis (3) Primary hypertension Status: Chronic (4) Mixed hyperlipidemia Status: Chronic (5) Acquired hypothyroidism Status: Chronic (6) Overweight Hospital Course Date of Admission: Jul 26, 2021 at 13:30 Admission Diagnosis : Family Physician/Provider: Caesar Lutz MD Date of Discharge: 07/27/21 Discharge Diagnosis: Atrial fibrillation with rapid ventricular response Hospital Course: Patient had a brief hospital course after she was admitted for atrial fibrillation with rapid ventricular response multiple medications were changed by cardiology and return to normal sinus rhythm and she was deemed stable for discharge. Labs and Pending Lab Test: Laboratory Tests 07/27/21 04:20: White Blood Count 5.0, Red Blood Count 3.39L, Hemoglobin 10.8L, Hematocrit 32L, Mean Corpuscular Volume 94, Mean Corpuscular Hemoglobin 32, Mean Corpuscular Hemoglobin Concent 34, Red Cell Distribution Width 12.6, Platelet Count 217, Mean Platelet Volume 10.4, Immature Granulocyte % (Auto) 0, Neutrophils (%) (Auto) 57, Lymphocytes (%) (Auto) 23, Monocytes (%) (Auto) 13H, Eosinophils (%) (Auto) 6, Basophils (%) (Auto) 0, Neutrophils # (Auto) 2.9, Lymphocytes # (Auto) 1.2, Monocytes # (Auto) 0.7, Eosinophils # (Auto) 0.3, Basophils # (Auto) 0.0, Immature Granulocyte # (Auto) 0.0, Sodium Level 138, Potassium Level 3.4L, Chloride Level 99, Carbon Dioxide Level 26, Anion Gap 13, Blood Urea Nitrogen 13, Creatinine 0.62, Estimat Glomerular Filtration Rate 91, BUN/Creatinine Ratio 21, Glucose Level 95, Calcium Level 8.7, Phosphorus Level 3.4, Magnesium Level 1.6, Triglycerides Level 79, Cholesterol Level 149, LDL Cholesterol Direct 76, VLDL Cholesterol 16, HDL Cholesterol 57, Thyroid Stimulating Hormone (TSH) 2.49 Microbiology 07/26/21 Urine Culture - Preliminary, Resulted Gram Negative Bacillus 1 07/26/21 Blood Culture - Preliminary, Resulted No growth Home Meds Active Diltiazem 24Hr ER (Diltiazem HCl) 120 Mg Cap.er.24h 120 Mg PO DAILY Xarelto Tablet (Rivaroxaban) 20 Mg Tablet 20 Mg PO DAILY@1700 Reported Aspirin EC (Aspirin) 81 Mg Tablet. 81 Mg PO DAILY Levothyroxine Sodium 100 Mcg Tablet 100 Mcg PO DAILY Losartan Potassium 50 Mg Tablet 50 Mg PO DAILY Atorvastatin Calcium 20 Mg Tablet 20 Mg PO HS Assessment/Pt Instructions [facility] 1 week Discharge Planning: <30 minutes discharge planning Discharge Instructions Discharge Diet: No Restrictions Discharge Physical Examination Vital Signs Vital Signs Date Time Temp Pulse Resp B/P (MAP) Pulse Ox O2 Delivery O2 Flow Rate FiO2 07/27/21 16:25 35.4 07/27/21 16:00 74 16 157/75 94 Room Air 07/27/21 07:37 2.00 96 General Appearance: No Apparent Distress, WD/WN Allergies: Coded Allergies: No Known Drug Allergies (Unverified , 07/26/21) Discharge Summary Date of Admission Jul 26, 2021 at 13:30 Date of Discharge Discharge Date: Jul 27, 2021 Discharge Diagnosis (1) Paroxysmal atrial fibrillation Assessment & Plan: She developed new onset atrial fibrillation as outlined above. She was just in the hospital in [place] so I suspect the atrial fibrillation may have started within the past 24-48 hours. She seems to be asymptomatic with this. She has now converted to a sinus rhythm. I have changed the intravenous diltiazem over to long-acting oral diltiazem. I will initiate therapy with rivaroxaban for stroke prophylaxis. Her [id number] score is 4 due to female sex, age over 65, age over 75, and hypertension. She lives 1 hour from our hospital and would prefer to follow-up with her 's supplier quality from [place] who periodically comes to their home town to see patients. (2) Aortic stenosis (3) Primary hypertension Status: Chronic (4) Mixed hyperlipidemia Status: Chronic (5) Acquired hypothyroidism Status: Chronic Assessment & Plan: Her TSH level is normal so it is unlikely the thyroid disease had anything to do with the atrial fibrillation. (6) Overweight ABDULAZIZRACHELLE DO Jul 27, 2021 16:59
[2021-07-27] MEDS ORDERED: RIVAROXABAN 20 MG TABLET (XARELTO) PO SCH (17:00)
[2021-07-27 17:36] VITALS: BP 157/75
[2021-07-28] MEDS ORDERED: LEVOTHYROXINE 100 MCG (LEVOTHROID) TAB PO SCH (06:30)
--- NOTE | 2021-08-07 02:55 | Physician Query Clarification ---
PQ-CHF Specificity Admission Date: Jul 26, 2021 at 13:30 Discharge Date: Jul 27, 2021 at 17:30 RACHELLE Ma DO The medical record reflects the following clinical scenario: History/Risk Factors: 86 y/o female patient admitted with atrial fibrillation with rapid ventricular response, congestive heart failure was documented in medical record. Clinical Findings: BNP- 3882 H, EF-65-70 % Treatment: Furosemide IV, Diltiazem IV Question: Can you further specify the acuity &/or type of CHF per the clinical indicators above? Please document a response in the Progress Notes or Discharge Summary. 1. Acuity: Acute, Chronic or Acute on Chronic 2. Type: Systolic, Diastolic or Systolic & Diastolic 3. Unspecified: CHF cannot be further specified regarding type or acuity 4. Other, with explanation of clinical findings 5. Clinically undetermined, no explanation for clinical findings PHYSICIAN RESPONSE Acuity: Acute Type: Diastolic Please remember a lack of response to the above will prompt a phone page by CDI/Coding staff. In responding to this query, please exercise your independent professional judg ment. The purpose of this communication is to more accurately reflect the complexity of your patients condition. The fact that a question is asked does not imply that any particular answer is desired or expected. Thank you for your timely response to this clarification. Requestors name: [ ] Phone # [ ] THIS PHYSICIAN QUERY FORM IS A PERMANENT PART OF THE MEDICAL RECORD ALBERTO MORAN Aug 07, 2021 02:55 RACHELLE CINTRON DO Aug 07, 2021 05:22
--- NOTE | 2021-08-07 03:05 | Physician Query Clarification ---
PQ-Uncertain Diagnosis Admission/Discharge Admission Date: Jul 26, 2021 at 13:30 Discharge Date: Jul 27, 2021 at 17:30 RACHELLE Ma DO The medical record reflects the following clinical scenario: History/Risk Factors: 86 y/o female patient admitted with atrial fibrillation with rapid ventricular response, pneumonia was documented in medical record. Clinical Findings: The vague area of increased density in the right infrahilar could be pneumonia/ atelectasis on chest X-ray Treatment: Levothyroxine Question: Is Pneumonia a clinically valid diagnosis? Pneumonia was documented in the ER provider notes, 07/26 with no further documentation in the medical record. Please document a response in Progress Note or Discharge Summary. 1. Yes, clinically valid, condition resolved. 2. No, condition ruled out. 3. Other, with explanation of clinical findings. 4. Undetermined, no explanation for clinical findings. PHYSICIAN RESPONSE Diagnosis clinically valid: No, conditon ruled out Please remember a lack of response to the above will prompt a phone page by CDI/Coding staff. In responding to this query, please exercise your independent professional judgment. The purpose of this communication is to more accurately reflect the complexity of your patients condition. The fact that a question is asked does not imply that any particular answer is desired or expected. Thank you for your timely response to this clarification. Requestors name: [ ] Phone # [ ] THIS PHYSICIAN QUERY FORM IS A PERMANENT PART OF THE MEDICAL RECORD ALBERTO MORAN Aug 07, 2021 03:04 RACHELLE CINTRON DO Aug 07, 2021 05:22
== END 2021-07-27 17:30 | disposition home or self-care (01) | DRG 308 ==
LOC: ER FS 11:07 → ICU 13:30
PROVIDERS: ADMIT Family Medicine; ATTEND Family Medicine
DX: I48.0 Paroxysmal atrial fibrillation (principal); I50.31 Acute diastolic (congestive) heart failure; E03.9 Hypothyroidism, unspecified; I11.0 Hypertensive heart disease with heart failure; R01.1 Cardiac murmur, unspecified; E78.2 Mixed hyperlipidemia; I35.0 Nonrheumatic aortic (valve) stenosis; E66.3 Overweight; Z68.26 Body mass index [BMI] 26.0-26.9, adult; Z79.82 Long term (current) use of aspirin; Z79.01 Long term (current) use of anticoagulants; Z79.890 Hormone replacement therapy; Z79.899 Other long term (current) drug therapy; Z86.16 Personal history of COVID-19
CPT/HCPCS: 36415; 51702; 71045; 80048; 80053; 80061; 81000; 83605; 83735; 83880; 84100; 84443; 84484; 85025; 85610; 85730; 87040; 87088; 87804; 93005; 93306; 96374; 96375